=== PATIENT | male | born 1970 | race Caucasian/White ===

== ENCOUNTER 2025-02-06 08:56 | Outpatient (CLI) | payer BC, SELFPAY | END 2025-02-06 08:57 | disposition home or self-care (01) | PROVIDERS: PCP Family Medicine; Visit Provider Nurse Practitioner Family | DX: E11.621 Type 2 diabetes mellitus with foot ulcer (principal); E11.40 Type 2 diabetes mellitus with diabetic neuropathy, unspecified; L97.412 Non-pressure chronic ulcer of right heel and midfoot with fat layer exposed; I10 Essential (primary) hypertension; Z79.4 Long term (current) use of insulin | CPT/HCPCS: 97597; G0463 ==

== ENCOUNTER 2025-02-11 09:45 | Outpatient (CLI) | payer BC, SELFPAY | END 2025-02-11 09:46 | disposition home or self-care (01) | LOC: WOUND 09:45 | PROVIDERS: PCP Family Medicine; Visit Provider Nurse Practitioner Family | DX: E11.621 Type 2 diabetes mellitus with foot ulcer (principal); E11.40 Type 2 diabetes mellitus with diabetic neuropathy, unspecified; L97.412 Non-pressure chronic ulcer of right heel and midfoot with fat layer exposed; I10 Essential (primary) hypertension; Z79.4 Long term (current) use of insulin | CPT/HCPCS: 11042 ==

== ENCOUNTER 2025-02-13 08:55 | Outpatient (CLI) | payer BC, SELFPAY | END 2025-02-13 08:56 | disposition home or self-care (01) | LOC: WOUND 08:55 | PROVIDERS: PCP Family Medicine; Visit Provider Nurse Practitioner Family | DX: E11.621 Type 2 diabetes mellitus with foot ulcer (principal); E11.40 Type 2 diabetes mellitus with diabetic neuropathy, unspecified; L97.412 Non-pressure chronic ulcer of right heel and midfoot with fat layer exposed; I10 Essential (primary) hypertension; Z79.4 Long term (current) use of insulin | CPT/HCPCS: 29445 ==

== ENCOUNTER 2025-02-20 09:02 | Outpatient (CLI) | payer BC, SELFPAY | END 2025-02-20 09:03 | disposition home or self-care (01) | LOC: WOUND 09:02 | PROVIDERS: PCP Family Medicine; Visit Provider Nurse Practitioner Family | DX: E11.621 Type 2 diabetes mellitus with foot ulcer (principal); E11.40 Type 2 diabetes mellitus with diabetic neuropathy, unspecified; L97.412 Non-pressure chronic ulcer of right heel and midfoot with fat layer exposed; I10 Essential (primary) hypertension; L84 Corns and callosities; Z79.4 Long term (current) use of insulin | CPT/HCPCS: 11055 ==

== ENCOUNTER 2025-02-27 09:02 | Outpatient (CLI) | payer BC, SELFPAY | END 2025-02-27 09:03 | disposition home or self-care (01) | LOC: WOUND 09:02 | PROVIDERS: PCP Family Medicine; Visit Provider Nurse Practitioner Family | DX: E11.621 Type 2 diabetes mellitus with foot ulcer (principal); E11.40 Type 2 diabetes mellitus with diabetic neuropathy, unspecified; L97.412 Non-pressure chronic ulcer of right heel and midfoot with fat layer exposed; I10 Essential (primary) hypertension | CPT/HCPCS: 11042 ==

== ENCOUNTER 2025-03-06 08:59 | Outpatient (CLI) | payer BC, SELFPAY | END 2025-03-06 09:00 | disposition home or self-care (01) | LOC: WOUND 08:59 | PROVIDERS: PCP Family Medicine; Visit Provider Nurse Practitioner Family | DX: E11.621 Type 2 diabetes mellitus with foot ulcer (principal); E11.40 Type 2 diabetes mellitus with diabetic neuropathy, unspecified; L97.412 Non-pressure chronic ulcer of right heel and midfoot with fat layer exposed; I10 Essential (primary) hypertension; Z79.4 Long term (current) use of insulin | CPT/HCPCS: G0463 ==

== ENCOUNTER 2025-03-13 08:58 | Outpatient (CLI) | payer BC, SELFPAY | END 2025-03-13 08:59 | disposition home or self-care (01) | LOC: WOUND 08:58 | PROVIDERS: PCP Family Medicine; Visit Provider Nurse Practitioner Family | DX: E11.40 Type 2 diabetes mellitus with diabetic neuropathy, unspecified (principal); Z86.31 Personal history of diabetic foot ulcer; I10 Essential (primary) hypertension; Z79.4 Long term (current) use of insulin | CPT/HCPCS: G0463 ==

== ENCOUNTER 2025-03-27 09:02 | Outpatient (CLI) | payer BC, SELFPAY | END 2025-03-27 09:03 | disposition home or self-care (01) | LOC: WOUND 09:02 | PROVIDERS: PCP Family Medicine; Visit Provider Nurse Practitioner Family | DX: E11.40 Type 2 diabetes mellitus with diabetic neuropathy, unspecified (principal); I10 Essential (primary) hypertension; Z86.31 Personal history of diabetic foot ulcer; Z79.4 Long term (current) use of insulin | CPT/HCPCS: G0463 ==